=== PATIENT | female | born 1985 | race Native Hawaiian/Other Pacific Islander ===

== ENCOUNTER 2017-08-31 19:03 | Emergency (ER) | payer OTHER ==
[~2017-08-31] VITALS: Ht 157.5 cm; Wt 83.5 kg
[2017-08-31 22:32] VITALS: BP 131/77; TEMP 98.2
== END 2017-08-31 22:35 | disposition home or self-care (01) ==
LOC: ED 19:03
DX: Z72.820 Sleep deprivation (principal); F41.8 Other specified anxiety disorders
CPT/HCPCS: 36415; 85379; 99283

== ENCOUNTER 2017-09-01 23:32 | Emergency (ER) | payer OTHER ==
[~2017-09-01] VITALS: Ht 157.5 cm; Wt 83.5 kg
[2017-09-02 00:59] VITALS: BP 121/71; TEMP 97.9
== END 2017-09-02 01:08 | disposition home or self-care (01) ==
LOC: ED 23:32
DX: F41.9 Anxiety disorder, unspecified (principal)
CPT/HCPCS: 96372; 99282; J2060

== ENCOUNTER → 2017-09-02 17:40 | Outpatient (CLI) | payer OTHER ==
[~2017-09-02 17:40] MED LIST: CELEXA20 MG PO; LORA0.5T17 PO
[2017-09-02 18:38] LABS: PLATELET COUNT 221 K/uL (152-353)
[2017-09-02 18:59] LABS: POTASSIUM 4.1 mmol/L (3.6-5.2); SODIUM 136 mmol/L (136-145)
== END | disposition home or self-care (01) ==
LOC: LAB 17:40
PROVIDERS: Nurse Practitioner Family
DX: R53.83 Other fatigue (principal)
CPT/HCPCS: 80053; 82550; 82607; 84443; 84484; 85027; 85379

== ENCOUNTER 2017-09-07 15:14 | Outpatient (CLI) | payer OTHER | END 2017-09-07 21:15 | disposition home or self-care (01) | LOC: LABW 15:14 | DX: R10.11 Right upper quadrant pain (principal) | CPT/HCPCS: 36415; 81000; 82150; 83690; 86318 ==

== ENCOUNTER 2017-09-11 08:42 | Outpatient (CLI) | payer OTHER | END 2017-09-11 19:22 | disposition home or self-care (01) | LOC: US 08:42 | DX: R10.11 Right upper quadrant pain (principal) ==

== ENCOUNTER 2017-10-03 13:27 | Emergency (ER) | payer OTHER ==
[~2017-10-03] VITALS: Ht 157.5 cm; Wt 82.6 kg
[2017-10-03 13:39] VITALS: TEMP 98.2
[2017-10-03] MEDS ORDERED: CELEXA20 MG PO (13:39)
[2017-10-03] MEDS ORDERED: LORA0.5T17 PO (13:40)
[2017-10-03 14:31] LABS: POTASSIUM 3.6 mmol/L (3.6-5.2); SODIUM 131 mmol/L (136-145)
[2017-10-03 14:35] LABS: PLATELET COUNT 195 K/uL (152-353)
[2017-10-03 14:43] LABS: PARTIAL THROMBOPLASTIN TIME 30.4 SECONDS (24.5-33.6)
[2017-10-03 15:24] VITALS: BP 104/69
== END 2017-10-03 15:24 | disposition home or self-care (01) ==
LOC: ED 13:27
DX: R07.89 Other chest pain (principal); F41.9 Anxiety disorder, unspecified
CPT/HCPCS: 80053; 82550; 84484; 85027; 85610; 85730; 93005; 99284

== ENCOUNTER 2017-11-04 07:15 | Outpatient (CLI) | payer OTHER | END 2017-11-04 17:58 | disposition home or self-care (01) | LOC: RESP 07:15 | DX: R07.89 Other chest pain (principal) | CPT/HCPCS: 93306 ==

== ENCOUNTER 2018-03-18 15:53 | Outpatient (CLI) | payer OTHER ==
[2018-03-18 16:38] LABS: PLATELET COUNT 194 K/uL (152-353)
[2018-03-18 16:44] LABS: SODIUM 136 mmol/L (136-145)
== END 2018-03-18 23:29 | disposition home or self-care (01) ==
LOC: LABW 15:53
PROVIDERS: Family Medicine
DX: R07.89 Other chest pain (principal)
CPT/HCPCS: 36415; 80053; 82550; 84484; 85027; 93005

== ENCOUNTER 2018-06-03 01:10 | Emergency (ER) | payer OTHER ==
[~2018-06-03] VITALS: Ht 160 cm; Wt 97.5 kg
[2018-06-03 01:57] VITALS: BP 149/88; TEMP 98.2
== END 2018-06-03 01:59 | disposition home or self-care (01) ==
LOC: ED 01:10
DX: K21.9 Gastro-esophageal reflux disease without esophagitis (principal)
CPT/HCPCS: 99282

== ENCOUNTER 2018-07-15 19:27 | Outpatient (CLI) | payer OTHER | END 2018-07-15 23:46 | disposition home or self-care (01) | LOC: RAD 19:27 | DX: M54.17 Radiculopathy, lumbosacral region (principal) ==

== ENCOUNTER 2018-11-22 18:15 | Outpatient (CLI) | payer OTHER | END 2018-11-22 20:00 | disposition home or self-care (01) | LOC: LABW 18:15 | DX: N91.2 Amenorrhea, unspecified (principal) | CPT/HCPCS: 36415; 84702 ==

== ENCOUNTER 2018-12-06 22:56 | Outpatient (CLI) | payer OTHER | END 2018-12-06 23:50 | disposition home or self-care (01) | LOC: LAB 22:56 | DX: B37.3 Candidiasis of vulva and vagina (principal); Z11.3 Encounter for screening for infections with a predominantly sexual mode of transmission; N39.0 Urinary tract infection, site not specified | CPT/HCPCS: 87077; 87086; 87088; 87186; 87490; 87590 ==

== ENCOUNTER 2019-01-21 20:46 | Emergency (ER) | payer OTHER ==
[~2019-01-21] VITALS: Ht 160 cm; Wt 108.9 kg
[2019-01-21 20:55] VITALS: TEMP 97.7
[2019-01-21 22:13] VITALS: BP 122/80
== END 2019-01-21 22:15 | disposition home or self-care (01) ==
LOC: ED 20:46
DX: S09.90XA Unspecified injury of head, initial encounter (principal); W06.XXXA Fall from bed, initial encounter
CPT/HCPCS: 99283

== ENCOUNTER 2019-06-15 15:45 | Outpatient (CLI) | payer OTHER | END 2019-06-15 21:27 | disposition home or self-care (01) | LOC: US 15:45 | DX: M79.605 Pain in left leg (principal); M25.562 Pain in left knee ==

== ENCOUNTER 2019-06-29 10:55 | Outpatient (CLI) | payer OTHER ==
[2019-06-29 11:20] LABS: PLATELET COUNT 263 K/uL (152-353)
[2019-06-29 11:38] LABS: POTASSIUM 4.2 mmol/L (3.6-5.2)
== END 2019-06-29 20:13 | disposition home or self-care (01) ==
LOC: CT 10:55
PROVIDERS: Internal Medicine
DX: R06.02 Shortness of breath (principal)
CPT/HCPCS: 36415; 80053; 80061; 81000; 83880; 84439; 84443; 85027; 85379; Q9963

== ENCOUNTER 2019-09-26 10:49 | Emergency (ER) | payer OTHER ==
[~2019-09-26] VITALS: Ht 160 cm; Wt 108.9 kg
[2019-09-26 11:00] VITALS: TEMP 98.9
[2019-09-26 11:53] LABS: PLATELET COUNT 234 K/uL (152-353)
[2019-09-26 11:57] LABS: POTASSIUM 3.8 mmol/L (3.6-5.2)
[2019-09-26 13:15] VITALS: BP 161/98
== END 2019-09-26 13:20 | disposition home or self-care (01) ==
LOC: ED 10:49
PROVIDERS: Student in an Organized Health Care Education/Training Program
DX: B34.9 Viral infection, unspecified (principal); R11.0 Nausea
CPT/HCPCS: 36415; 80053; 81000; 81025; 83690; 83735; 85027; 87502; 96360; 99284

== ENCOUNTER 2019-12-30 07:49 | Outpatient (CLI) | payer OTHER ==
[2019-12-30 08:54] LABS: POTASSIUM 4.1 mmol/L (3.6-5.2)
[2019-12-30 09:59] LABS: PLATELET COUNT 250 K/uL (152-353)
== END 2019-12-30 23:00 | disposition home or self-care (01) ==
LOC: LABW 07:49
PROVIDERS: Nurse Practitioner Family
DX: K92.1 Melena (principal)
CPT/HCPCS: 36415; 80053; 82272; 85027; Q9963

== ENCOUNTER 2020-05-07 16:53 | Outpatient (CLI) | payer OTHER | END 2020-05-07 23:38 | disposition home or self-care (01) | LOC: RAD 16:53 | DX: J44.9 Chronic obstructive pulmonary disease, unspecified (principal) ==

== ENCOUNTER 2020-05-08 20:56 | Emergency (ER) | payer OTHER ==
[~2020-05-08] VITALS: Ht 160 cm; Wt 122.5 kg
[2020-05-08 21:05] VITALS: TEMP 98.6
[2020-05-08 21:52] LABS: PLATELET COUNT 247 K/uL (152-353)
[2020-05-08 22:19] LABS: POTASSIUM 3.5 mmol/L (3.6-5.2); SODIUM 139 mmol/L (136-145)
[2020-05-08 23:10] VITALS: BP 160/92
== END 2020-05-08 23:10 | disposition home or self-care (01) ==
LOC: ED 20:56
PROVIDERS: Emergency Medicine Emergency Medical Services
DX: R07.89 Other chest pain (principal)
CPT/HCPCS: 36415; 80053; 82550; 84484; 85027; 85379; 93005; 99284

== ENCOUNTER 2020-05-09 09:54 | Outpatient (CLI) | payer OTHER | END 2020-05-09 19:05 | disposition home or self-care (01) | LOC: RESP 09:54 | DX: J44.9 Chronic obstructive pulmonary disease, unspecified (principal) ==

== ENCOUNTER 2020-05-15 14:48 | Outpatient (CLI) | payer OTHER | END 2020-05-16 00:46 | disposition home or self-care (01) | LOC: RESP 14:48 | DX: R00.2 Palpitations (principal) ==

== ENCOUNTER 2020-05-17 08:06 | Outpatient (CLI) | payer OTHER | END 2020-05-17 19:26 | disposition home or self-care (01) | LOC: NM 08:06 | DX: R00.2 Palpitations (principal) | CPT/HCPCS: A9500 ==

== ENCOUNTER 2020-05-28 11:31 | Outpatient (CLI) | payer OTHER | END 2020-05-28 22:31 | disposition home or self-care (01) | LOC: LABW 11:31 | DX: N83.202 Unspecified ovarian cyst, left side (principal) | CPT/HCPCS: 36415; 86304 ==

== ENCOUNTER 2020-06-05 13:31 | Outpatient (CLI) | payer OTHER | END 2020-06-05 20:25 | disposition home or self-care (01) | LOC: RESP 13:31 | DX: R00.2 Palpitations (principal) | CPT/HCPCS: 93225 ==

== ENCOUNTER 2020-06-12 21:25 | Emergency (ER) | payer OTHER ==
[~2020-06-12] VITALS: Ht 160 cm; Wt 122.5 kg
[2020-06-12 22:38] LABS: PLATELET COUNT 230 K/uL (152-353)
[2020-06-12 22:57] LABS: POTASSIUM 3.6 mmol/L (3.6-5.2)
[2020-06-12 23:38] VITALS: BP 126/74; TEMP 98.7
== END 2020-06-12 23:40 | disposition home or self-care (01) ==
LOC: ED 21:25
PROVIDERS: Emergency Medicine Emergency Medical Services
DX: R10.84 Generalized abdominal pain (principal); Z98.890 Other specified postprocedural states
CPT/HCPCS: 36415; 80053; 81000; 81025; 83690; 85027; 96360; 96375; 99284; J1885; J2405

== ENCOUNTER 2020-06-14 17:03 | Outpatient (CLI) | payer OTHER | END 2020-06-14 20:28 | disposition home or self-care (01) | LOC: LAB 17:03 | DX: Z03.818 Encounter for observation for suspected exposure to other biological agents ruled out (principal) | CPT/HCPCS: 87502; 87635; U0003 ==

== ENCOUNTER 2020-10-09 08:34 | Outpatient (CLI) | payer OTHER | END 2020-10-09 19:39 | disposition home or self-care (01) | LOC: LABW 08:34 | PROVIDERS: ATTEND Nurse Practitioner Primary Care | DX: Z03.818 Encounter for observation for suspected exposure to other biological agents ruled out (principal) | CPT/HCPCS: 87502; 87635; U0003 ==

== ENCOUNTER 2020-10-10 10:55 | Outpatient (CLI) | payer OTHER | END 2020-10-10 21:09 | disposition home or self-care (01) | LOC: RAD 10:55 | PROVIDERS: ATTEND Nurse Practitioner Family | DX: R06.2 Wheezing (principal); R05 Cough ==

== ENCOUNTER 2021-04-03 12:04 | Outpatient (CLI) | payer OTHER | END 2021-04-03 19:12 | disposition home or self-care (01) | LOC: RAD 12:04 | PROVIDERS: ATTEND Nurse Practitioner Family | DX: U07.1 COVID-19 (principal) ==

== ENCOUNTER 2021-04-04 08:31 | Outpatient (CLI) | payer OTHER ==
[~2021-04-04] VITALS: Ht 157.5 cm; Wt 115.7 kg
== END 2021-04-04 20:06 | disposition home or self-care (01) ==
LOC: INF 08:31
PROVIDERS: ATTEND Family Medicine
DX: Z23 Encounter for immunization (principal); U07.1 COVID-19
CPT/HCPCS: 96365; M0244

== ENCOUNTER 2021-07-29 11:27 | Outpatient (CLI) | payer OTHER | END 2021-07-29 19:02 | disposition home or self-care (01) | LOC: US 11:27 | PROVIDERS: ATTEND Nurse Practitioner Family | DX: M25.561 Pain in right knee (principal); M79.604 Pain in right leg ==

== ENCOUNTER 2021-10-31 11:18 | Outpatient (CLI) | payer OTHER | END 2021-10-31 20:00 | disposition home or self-care (01) | LOC: LABW 11:18 | PROVIDERS: ATTEND Family Medicine | DX: O03.9 Complete or unspecified spontaneous abortion without complication (principal) | CPT/HCPCS: 36415; 84702 ==

== ENCOUNTER 2022-01-31 21:01 | Emergency (ER) | payer OTHER ==
[~2022-01-31] VITALS: Ht 157.5 cm; Wt 104.8 kg
[2022-01-31 21:25] LABS: PLATELET COUNT 234 K/uL (152-353)
[2022-01-31 21:29] LABS: POTASSIUM 3.3 mmol/L (3.6-5.2); SODIUM 138 mmol/L (136-145)
[2022-01-31 21:43] LABS: PARTIAL THROMBOPLASTIN TIME 28.4 SECONDS (24.5-33.6)
[2022-01-31 23:05] VITALS: BP 143/85; TEMP 98.5
== END 2022-01-31 23:05 | disposition home or self-care (01) ==
LOC: ED 21:01
PROVIDERS: Emergency Medicine
DX: R07.89 Other chest pain (principal)
CPT/HCPCS: 36415; 80053; 82550; 84484; 85027; 85379; 85610; 85730; 93005; 99283

== ENCOUNTER 2022-06-28 14:58 | Emergency (ER) | payer OTHER ==
[~2022-06-28] VITALS: Ht 157.5 cm; Wt 104.8 kg
[2022-06-28 15:07] VITALS: TEMP 98.7
[2022-06-28 15:58] LABS: PLATELET COUNT 246 K/uL (152-353)
[2022-06-28 16:03] LABS: SODIUM 138 mmol/L (136-145)
[2022-06-28 16:06] LABS: PARTIAL THROMBOPLASTIN TIME 29.1 SECONDS (24.5-33.6)
[2022-06-28 17:16] VITALS: BP 148/95
== END 2022-06-28 17:39 | disposition home or self-care (01) ==
LOC: ED 14:58
PROVIDERS: Family Medicine
DX: R07.89 Other chest pain (principal)
CPT/HCPCS: 80053; 81025; 82550; 84484; 85027; 85379; 85610; 85730; 93005; 96374; 99284; J1885

== ENCOUNTER 2023-03-24 08:31 | Outpatient (CLI) | payer OTHER | END 2023-03-24 18:53 | disposition home or self-care (01) | LOC: CT 08:31 | PROVIDERS: ATTEND Internal Medicine | DX: J32.0 Chronic maxillary sinusitis (principal) ==